=== PATIENT | female | born 1960 | race Caucasian/White ===

== ENCOUNTER 2022-01-12 17:12 | Outpatient (CLI) | payer OTHER, SELFPAY ==
[2022-01-12 11:15] LABS: Albumin* 4.2 g/dL (3.3-5.0); Chloride* 103 mmol/L (96-114); Sodium* 136 mmol/L (135-149)
[2022-01-12 11:16] LABS: Potassium* 4.3 mmol/L (3.6-5.1)
[2022-01-12 11:17] LABS: Cholesterol* 202 mg/dL (90-199)
[2022-01-12 11:18] LABS: Alanine Aminotransferase* 30 U/L (4-35); Alkaline Phosphatase* 86 U/L (40-150); Aspartate Amino Transferase* 31 U/L (12-35); Bilirubin Total* 0.3 mg/dL (0.1-1.5); Blood Urea Nitrogen* 14 mg/dL (7-30); Carbon Dioxide* 27 mmol/L (20-32); Creatinine* 0.5 mg/dL (0.5-1.5); Estimated Glomerular Filt Rate 107 ml/min; Glucose* 104 mg/dL (60-115); Total Protein* 6.9 g/dL (6.0-8.3); Triglycerides* 196 mg/dL (40-149)
[2022-01-12 11:19] LABS: Calcium* 8.9 mg/dL (8.4-10.6); HDL Cholesterol* 52 mg/dL (>=50); LDL Cholesterol Calculated 111 mg/dL (<100)
== END 2022-01-12 17:13 | disposition home or self-care (01) ==
PROVIDERS: PCP Family Medicine; Visit Provider Family Medicine
DX: Z01.419 Encounter for gynecological examination (general) (routine) without abnormal findings (principal); R53.83 Other fatigue; F32.9 Major depressive disorder, single episode, unspecified; F41.9 Anxiety disorder, unspecified; Z13.6 Encounter for screening for cardiovascular disorders; Z86.39 Personal history of other endocrine, nutritional and metabolic disease
CPT/HCPCS: 80053; 80061; 84443

== ENCOUNTER 2023-08-06 08:28 | Outpatient (CLI) | payer OTHER, SELFPAY | END 2023-08-06 08:29 | disposition home or self-care (01) | LOC: NFLDREF 08-08 12:30 | PROVIDERS: PCP Family Medicine; Referring Provider Family Medicine; Visit Provider Family Medicine | DX: Z13.220 Encounter for screening for lipoid disorders (principal); Z13.228 Encounter for screening for other metabolic disorders; Z13.29 Encounter for screening for other suspected endocrine disorder | CPT/HCPCS: 80053; 80061; 84443 ==

== ENCOUNTER 2023-09-05 08:45 | Outpatient (CLI) | payer OTHER, SELFPAY ==
--- NOTE | 2023-09-05 09:00 | CT_ITS ---
Patient: JOSE ALFREDO ALAS Facility:?[facility] RIS Patient ID:?[id number] Site Patient ID:?[id number]. Site :?[id number] Study:?CT-Chest w/o-09/05/2023 9:04:26 AM Ordering Physician:Nettie Final Report: Indication Pulmonary nodule. Technique Noncontrast CT images of the chest. Comparison CT chest 10/15/2021. Findings Stable subtle 5 mm ground-glass nodularity within the left lung apex (series 3 image 23). No new or enlarging pulmonary nodules. No focal consolidation, pleural effusion, or pneumothorax. Heart size is normal. No pericardial effusion. Coronary artery atherosclerotic calcifications. No mediastinal or hilar lymphadenopathy. Limited images through the upper abdomen are unremarkable. Multilevel thoracic spondylosis. Ydab-oj-wumqegfq rightward thoracic curvature. Unchanged chronic L1 compression deformity. No aggressive osseous lesions. IMPRESSION: Stable subtle, small ground-glass nodularity within the left lung apex. No new pulmonary nodules. No acute abnormality in the chest. Please note that all CT scans at this facility use dose modulation, iterative reconstruction, and/or weight-based dosing when appropriate to reduce radiation dose to as low as reasonably achievable. Dictated by Ash Morse MD @ 09/05/2023 6:32:30 PM Signed by:?Ash Morse MD @09/05/2023 6:32:30 PM (Electronic Signature)
== END 2023-09-05 08:46 | disposition home or self-care (01) ==
LOC: CT 08:46
PROVIDERS: PCP Family Medicine; Visit Provider Family Medicine
DX: R91.1 Solitary pulmonary nodule (principal)
CPT/HCPCS: 71250

== ENCOUNTER 2023-11-15 15:01 | Outpatient (CLI) | payer OTHER, SELFPAY ==
--- NOTE | 2023-11-15 15:20 | CRLHL7_ITS ---
For Patients: As a result of the Century Cures Act, medical imaging exams and procedure reports are released immediately into your electronic medical record. You may view this report before your referring provider. If you have questions, please contact your health care provider. BILATERAL SCREENING MAMMOGRAM WITH COMPUTER-AIDED DETECTION AND TOMOSYNTHESIS TECHNIQUE: CC and MLO views were obtained. These mammographic images have been obtained using full-field digital technique. These mammographic images were interpreted with the benefit of computer-aided detection. Breast Tomosynthesis was used in this interpretation. COMPARISON FILM: Baseline. FINDINGS: The breasts are heterogeneously dense, which may obscure small masses. IMPRESSION: There is no radiographic evidence for malignancy. ASSESSMENT: BI-RADS Category 2: Benign RECOMMENDATION: Routine screening mammogram in 1 year. A lay language report of this examination will be provided to the patient. Reinaldo Lamb M.D. Diagnostic Radiologist [email or web address] SP/Dictated by: Reinaldo Lamb MD @ 11/16/2023 10:18:00 AM (Electronically Signed)
== END 2023-11-15 15:02 | disposition home or self-care (01) ==
LOC: MAMMO 15:01
PROVIDERS: PCP Family Medicine; Visit Provider Family Medicine
DX: Z12.31 Encounter for screening mammogram for malignant neoplasm of breast (principal); R92.2 Inconclusive mammogram
CPT/HCPCS: 77063; 77067